=== PATIENT | male | born 1970 | race Caucasian/White ===

== ENCOUNTER 2020-09-03 23:36 | Emergency (ER) | payer BC ==
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
[2020-09-04] MEDS ORDERED: KETOROLAC 15 MG/ML 1 ML VIAL IVP STA (00:54)
[2020-09-04] MEDS ORDERED: SODIUM CHLORIDE 0.9% 1,000 ML IV STA (00:54)
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
[2020-09-04 02:21] VITALS: BP 155/99; PULSE 80; RESP 18; TEMP 98.1
== END 2020-09-04 02:50 ==
LOC: EC 23:36
DX: M25.561 Pain in right knee (principal); F10.129 Alcohol abuse with intoxication, unspecified; Y90.9 Presence of alcohol in blood, level not specified; Y04.0XXA Assault by unarmed brawl or fight, initial encounter
CPT/HCPCS: 73562; 71045; 72125; 70486; 70450; 99284; 96374; J1885